=== PATIENT | female | born 1955 | race African-American/Black ===

== ENCOUNTER 2023-07-23 11:35 | Emergency (ER) | payer MEDICARE, MEDICAID ==
[~2023-07-23] VITALS: Ht 167.6 cm; Wt 59.0 kg
[2023-07-23] MEDS: ZIPRASIDONE MESYLATE 20MG/VIAL IM STA (12:22)
[2023-07-23 13:31] VITALS: O2SAT 100
[2023-07-23] MEDS: MIDAZOLAM HCL 2 MG/2 ML VIAL IM ONE (13:31)
[2023-07-23 16:57] VITALS: BP 131/84; PULSE 99; RESP 18; TEMP 98.5
== END 2023-07-23 16:57 | disposition home or self-care (01) ==
LOC: ER 11:52
DX: R46.2 Strange and inexplicable behavior (principal)
CPT/HCPCS: 99285; 71045; 96372; J2250; J3486